=== PATIENT | female | born 1990 | race American Indian/Alaskan Native ===

== ENCOUNTER 2019-04-12 15:52 | Emergency (ER) | payer SELFPAY ==
[2019-04-12 16:19] VITALS: BP 119/78
--- NOTE | 2019-04-12 16:54 | Emergency Department Report ---
ED General Adult HPI - General Chief complaint: Skin/Abscess/Foreign Body Stated complaint: BITE ON LFT LEG Time Seen by Provider: 04/12/19 16:15 Source: patient Mode of arrival: Ambulatory Limitations: No Limitations - History of Present Illness Initial comments: 28 y o female presents with left lower leg pain and small swelling x 2 weeks pt states that she was bit by an insect 2 weeks ago and has been the same size and causing some pain She denies trauma or injuries - Related Data Home Medications Medication Instructions Recorded Confirmed Last Taken Vit-Fe Fumar-FA [ 1 tab PO QDAY 06/02/18 06/02/18 Unknown Vitamin] Previous Rx's Medication Instructions Recorded Last Taken Type Ibuprofen [Motrin] 800 mg PO Q8HR #30 tablet 04/12/19 Unknown Rx Sulfamethoxazole/Trimethoprim 1 each PO BID #20 tablet 04/12/19 Unknown Rx [Bactrim DS TAB] Allergies Allergy/AdvReac Type Severity Reaction Status Date / Time No Known Allergies Allergy Verified 06/02/18 14:20 ED Review of Systems ROS: Stated complaint: BITE ON LFT LEG Other details as noted in HPI Comment: All other systems reviewed and negative ED Past Medical Hx - Past Medical History Previous Medical History?: No Hx Hypertension: No Hx Diabetes: No Hx Deep Vein Thrombosis: No Hx Renal Disease: No Hx Sickle Cell Disease: No Hx Seizures: No Hx Asthma: No Hx HIV: No - Surgical History Past Surgical History?: Yes Additional Surgical History: - Social History Smoking Status: Never Smoker Substance Use Type: None - Medications Home Medications: Home Medications Medication Instructions Recorded Confirmed Last Taken Type Vit-Fe Fumar-FA [ 1 tab PO QDAY 06/02/18 06/02/18 Unknown History Vitamin] Ibuprofen [Motrin] 800 mg PO Q8HR #30 tablet 04/12/19 Unknown Rx Sulfamethoxazole/Trimethoprim 1 each PO BID #20 tablet 04/12/19 Unknown Rx [Bactrim DS TAB] ED Physical Exam - General Limitations: No Limitations General appearance: alert, in no apparent distress - Head Head exam: Present: atraumatic, normocephalic - Eye Eye exam: Present: normal appearance - ENT ENT exam: Present: mucous membranes moist - Neck Neck exam: Present: normal inspection - Respiratory Respiratory exam: Present: normal lung sounds bilaterally. Absent: respiratory distress - Cardiovascular Cardiovascular Exam: Present: regular rate, normal rhythm. Absent: systolic murmur, diastolic murmur, rubs, gallop - GI/Abdominal GI/Abdominal exam: Present: soft, normal bowel sounds - Extremities Exam Extremities exam: Present: normal inspection - Back Exam Back exam: Present: normal inspection - Neurological Exam Neurological exam: Present: alert, oriented X3 - Psychiatric Psychiatric exam: Present: normal affect, normal mood - Skin Skin exam: Present: warm, dry, intact, normal color, erythema (small 1 cm cellulitic lesion to left leg lateral), other. Absent: rash ED Course Vital Signs 04/12/19 16:17 Temperature 97.6 F Pulse Rate 105 H Respiratory 18 Rate Blood Pressure 119/78 O2 Sat by Pulse 100 Oximetry ED Medical Decision Making - Medical Decision Making 28 y o female presents with cellulitis from an insect bite pt will be sent home with antibiotics an dpain meds discuss f/u with pcp vss, no acute distress Critical care attestation.: If time is entered above; I have spent that time in minutes in the direct care of this critically ill patient, excluding procedure time. ED Disposition Clinical Impression: Insect bite of leg Disposition: DC-01 TO HOME OR SELFCARE Is pt being admited?: No Does the pt Need Aspirin: No Condition: Stable Instructions: Cellulitis (ED), Insect Bite or Sting (ED) Additional Instructions: follow up with your pcp apple picker and take prescriptions as discussed Prescriptions: Sulfamethoxazole/Trimethoprim [Bactrim DS TAB] 1 each PO BID #20 tablet Ibuprofen [Motrin] 800 mg PO Q8HR #30 tablet Referrals: [facility] [Outside] - 3-5 Days [facility] [Outside] - 3-5 Days Forms: Work/School Release Form(ED) Time of Disposition: 16:58
== END 2019-04-12 17:06 | disposition home or self-care (01) ==
LOC: ED 15:52
DX: S80.862A Insect bite (nonvenomous), left lower leg, initial encounter (principal); W57.XXXA Bitten or stung by nonvenomous insect and other nonvenomous arthropods, initial encounter; Y93.89 Activity, other specified; Y92.89 Other specified places as the place of occurrence of the external cause; Y99.8 Other external cause status

== ENCOUNTER 2020-09-30 12:28 | Emergency (ER) | payer OTHER ==
--- NOTE | 2020-09-30 12:56 | Emergency Department Report ---
Stated Complaint: LT BIG TOE NUMB - HPI History of Present Illness: 29-year-old - ROS Review of Systems: 29-year-old -[place] female presents to the emergency room for 1 month history of left great toe tenderness and tingling. 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 Patient denies any trauma to her toe. Patient states she has been using ice and icy hot with no relief. Patient has not taken any Tylenol or ibuprofen for her discomfort. - Exam Physical Exam: Alert and oriented x3 no acute distress nontoxic in appearance Left great toe full range of motion nonerythematous nonedematous nails intact. Mild tenderness to the tip. Ambulatory without difficulty. Able to wear footwear without discomfort. MSE screening note: Focused history and physical exam performed. Due to findings the following was ordered: 29-year-old -[place] female presents to the emergency room for 1 month history of left great toe tenderness and tingling. 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 Patient denies any trauma to her toe. Patient states she has been using ice and icy hot with no relief. Patient has not taken any Tylenol or ibuprofen for her discomfort. Discussed with patient she can try taking Tylenol ibuprofen for pain management. And follow-up with the marriage and family teacher. ED Disposition for MSE Clinical Impression: Toe pain, left Disposition: Z-07 MED SCREENING EXAM-LEFT Is pt being admited?: No Does the pt Need Aspirin: No Condition: Stable Instructions: Pain Without a Known Cause Additional Instructions: Recommend Tylenol or ibuprofen for pain management. Follow-up with a marriage and family teacher. I have listed 1 below for your convenience. Referrals: BARRY PATEL DPM [Staff Physician] - 3-5 Days
[2020-09-30 13:06] VITALS: BP 104/73
== END 2020-09-30 13:13 | disposition left against medical advice (07) ==
LOC: ED 12:28
DX: Z53.21 Procedure and treatment not carried out due to patient leaving prior to being seen by health care provider (principal)